=== PATIENT | female | born 1990 | race Caucasian/White ===

== ENCOUNTER 2022-08-05 14:51 | Outpatient (CLI) | payer BC, SELFPAY | END 2022-08-05 14:52 | disposition home or self-care (01) | PROVIDERS: PCP Physician Assistant; Visit Provider Family Medicine | DX: Z00.00 Encounter for general adult medical examination without abnormal findings (principal); R53.83 Other fatigue; F98.8 Other specified behavioral and emotional disorders with onset usually occurring in childhood and adolescence | CPT/HCPCS: 80048; 82306; 84443 ==